=== PATIENT | male | born 1980 | race African-American/Black ===

== ENCOUNTER 2022-06-08 11:21 | Emergency (ER) | payer MEDICARE, MEDICAID, SELFPAY ==
--- NOTE | 2022-06-08 11:31 | ED.EXTPRO ---
HPI - Extremity Problem General Chief complaint: Skin/Abscess/Foreign Body Stated complaint: Pain from Abscess Time Seen by Provider: 06/08/22 11:31 Source: patient and EMS Mode of arrival: EMS Limitations: no limitations History of Present Illness HPI Narrative: 41 yo male with history of IV drug abuse currently at detox at [facility] who presents to the ER for evaluation of painful right forearm abscess that started about 4 days ago. He reports the pain got significantly worse last night. It is now more tender, warm, red. He denies any fever or chills. He denies any discharge. He reports the pain is throbbing in nature, it is constant. It is worse with palpation and movement. MD Complaint: extremity pain and extremity swelling Onset (ago): day(s) (4) Pain Consistency: constant Location: right and upper extremity Severity scale (1-10): 9 Quality: stabbing and aching Radiation: none Relieving factors: immobilization Exacerbating factors: palpation Associated symptoms: denies other symptoms Related Data Previous Rx's Medication Instructions Recorded cephalexin 500 mg capsule 500 mg PO Q6H 7 days #28 caps 06/08/22 doxycycline monohydrate 100 mg 100 mg PO BID #14 caps 06/08/22 capsule ibuprofen 600 mg tablet 600 mg PO Q8H PRN pain #14 tabs 06/08/22 Allergies Allergy/AdvReac Type Severity Reaction Status Date / Time Unable to Assess Allergy Unverified 06/08/22 11:43 Review of Systems Review of Systems: Constitutional: No Fever, No Chills Cardiovascular: No Chest Pain, No SOB, No Orthopnea, No Edema Respiratory: No Cough, No Sputum, No Wheezing, No dyspnea Gastrointestinal: No Nausea, No Vomiting, No Diarrhea, No abdominal Pain Musculoskeletal: No joint pain, + Myalgias Skin: + Skin Lesions, No rash Neuro: No Weakness, No Numbness, No Dizziness, No Headache Psych: + Anxiety/Panic, No Depression Heme/Lymph: No Bruising, No Lymphadenopathy Endocrine: No Polyuria, No Polydipsia PMFSH Social History Social History Advance Directives: No Advance Directives Information Provided: No Physical Exam Vital Signs: Vital Signs: Last Vital Signs Temp 98 F 06/08/22 11:37 Pulse 80 06/08/22 11:37 Resp 18 06/08/22 11:37 BP 135/85 06/08/22 11:37 Pulse Ox 95 06/08/22 11:37 O2 Del Method 06/08/22 11:37 BMI result Body Mass Index 28.6 Appearance: Alert. Oriented X3. No acute distress. HEENT: normal inspection CVS: Normal heart rate and rhythm. Pulses normal. Respiratory: No respiratory distress. Skin: Skin warm and dry. Normal skin color. Normal skin turgor. No rashes. Extremities: dorsal aspect of the proximal right forearm with a moderate sized 6-7 cm area of erythema and warmth, with a central area of fluctuance with a small pustule. Diffuse soft tissue tenderness. Compartments of the forearm are soft and compressible. Evidence of IVDA with track irvin. 2+ radial pulse. 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 No weakness in the upper extremities. Neuro: Oriented X 3. No motor deficit. No sensory deficit. Course Course Course Narrative: 41-year-old male with a history of IV drug abuse presenting to the ER for evaluation of a right forearm abscess that has worsened over the last for 5 days. He denies any fever or chills. On examination there is a moderate area of cellulitis with a small area of fluctuance amenable to incision and drainage today. Patient is in agreement to get the abscess drained. Will give 1st dose of oral antibiotics here. No signs of systemic infection. Reevaluation(s) Reevaluation #1: Patient tolerated procedure well., only small amount of purulent material was expressed and then bloody material. Wound was dressed with a gauze dressing and Kerlix wrap. At this time he is stable for discharge back to [facility] with oral antibiotics, wound care with warm soaks multiple times a day. This can be monitored by the staff at the detox center. He is stable for discharge. Nurse to nurse sign out provided. Procedures Abscess I/D Site: upper extremity Side (if applicable): right Local Anesthetic: lidocaine 1% Amount of anesthesia used (mL): 1 Technique: incised with blade Sent for culture/gram staining?: No Irrigation: Yes Packing used?: none Complications: pain Critical Care Time Critical Care Time Critical Care Time: No Discharge Plan Discharge Clinical Impression: Cellulitis, Abscess of skin or subcutaneous tissue Patient Disposition: Xfer Inpatient Rehab Fac Instructions: Cellulitis (ED), Abscess Incision and Drainage (DC) Additional Instructions: Take the prescribed antibiotics as directed. Complete the entire course. Use warm compresses to the area several times per day to help increased blood flow to fight the infection. Recommend elevating your arm, use the Reddy wrap for compression to help with swelling. Take Motrin and Tylenol as needed for pain. If you develop new or worsening symptoms call 911 or come back to the ER for further evaluation. Prescriptions: New cephalexin 500 mg capsule 500 mg PO Q6H 7 Days Qty: 28 0RF doxycycline monohydrate 100 mg capsule 100 mg PO BID Qty: 14 0RF ibuprofen 600 mg tablet 600 mg PO Q8H PRN (Reason: pain) Qty: 14 0RF Discharge Date/Time: 06/08/22 12:56
[2022-06-08 11:37] VITALS: BP 135/85; PULSE 80; RESP 18; TEMP 36.6; O2SAT 95; BMI 28.6
[2022-06-08 11:43] VITALS: BP 162/100; PULSE 86; O2SAT 95
[2022-06-08] MEDS: Acetaminophen 325 MG TABLET 975 MG PO (12:08)
[2022-06-08] MEDS: Ketorolac Tromethamine 30 MG/ML VIAL IM (12:10)
[2022-06-08] MEDS: cephALEXin 500 MG CAPSULE PO (12:10)
[2022-06-08] MEDS: LORazepam 1 MG TABLET PO (12:27)
[2022-06-08] MEDS: Lidocaine HCl 1 % MPF 5 ML VIAL SUBCUT (12:32)
--- NOTE | 2022-06-08 12:56 | PC.NURSE ---
report called to JOE bello
== END 2022-06-08 12:56 ==
PROVIDERS: Emergency Provider Emergency Medicine Emergency Medical Services
DX: L02.413 Cutaneous abscess of right upper limb (principal); L03.113 Cellulitis of right upper limb; M79.631 Pain in right forearm; F19.10 Other psychoactive substance abuse, uncomplicated
CPT/HCPCS: 10060; 96372; 99282; 99284; J1885